=== PATIENT | female | born 1935 | race Caucasian/White ===

== ENCOUNTER 2016-10-04 08:26 | Day surgery (SDC) | payer MEDICARE, OTHER ==
--- NOTE | ~2016-10-04 | EGD ---
EGD REPORT [facility] [address] [place] [place] [address] NAME: YOSELIN JOSUE : 35 STATUS : REG [facility]#: [id number] AGE: 81 ADM/REG DATE : 10/04/16 MR#: [id number] REPORT SERV DATE: 10/04/16 DICTATED BY: TONYA PORTER DATE: 10/04/16 REPORT STATUS : Draft TRANSCRIBED BY: [facility] DATE: 10/04/16 Endoscopy Center Patient Name: Yoselin Josue Date of : 1935 Attending MD: OLIVIER PORTER MD Procedure Date No Time: 10/04/2016 Procedure: Colonoscopy Indications: FH of Colon Cancer - 1st degree relative, Last colonoscopy: September 2010 Referring MD: GEMMA NOLAN MD Medicines: See the Anesthesia note for documentation of the administered medications Complications: No immediate complications. Estimated blood loss: None. Procedure: Pre-Anesthesia Assessment: - ASA Grade Assessment: III - A patient with severe systemic disease. - Prior to the procedure, a History and Physical was performed, and patient medications and allergies were reviewed. The patient's tolerance of previous anesthesia was also reviewed. The risks and benefits of the procedure and the sedation options and risks were discussed with the patient. All questions were answered, and informed consent was obtained. Prior Anticoagulants: The patient has taken no previous anticoagulant or antiplatelet agents. After reviewing the risks and benefits, the patient was deemed in satisfactory condition to undergo the procedure. After I obtained informed consent, the scope was passed under direct vision. Throughout the procedure, the patient's blood pressure, pulse, and oxygen saturations were monitored continuously. The PCF [id number] was introduced through the anus and advanced to the terminal ileum. The ileocecal valve, appendiceal orifice, terminal ileum and rectum were photographed. The entire colon was examined. The colonoscopy was performed without difficulty. The patient tolerated the procedure well. The quality of the bowel preparation was adequate. Findings: The perianal and digital rectal examinations were normal. The terminal ileum appeared normal. A few medium-mouthed diverticula were found in the sigmoid colon and in the descending colon. Non-bleeding internal hemorrhoids were found during retroflexion and were Grade I (internal hemorrhoids that do not prolapse). EGD REPORT [place] [id number] [facility] [place]. [address] NAME: YOSELIN JOSUE : [birth year] STATUS : REG [facility]#: [id number] AGE: 81 ADM/REG DATE : 10/04/16 MR#: [id number] REPORT SERV DATE: 10/04/16 DICTATED BY: TONYA PORTER DATE: 10/04/16 REPORT STATUS : Draft TRANSCRIBED BY: [email or web address] DATE: 10/04/16 No other significant abnormalities were identified in a careful examination of the remainder of the colon. Impression: - The examined portion of the ileum was normal. - Diverticulosis in the sigmoid colon and in the descending colon. - Non-bleeding internal hemorrhoids. Recommendation: - Patient has a contact number available for emergencies. The signs and symptoms of potential delayed complications were discussed with the patient. Return to normal activities tomorrow. Written discharge instructions were provided to the patient. - High fiber diet indefinitely. - Discharge patient to home. - Continue present medications. - Repeat colonoscopy is not recommended for surveillance. Procedure Code(s): --- Professional --- 93844, Colonoscopy, flexible, proximal to splenic flexure; diagnostic, with or without collection of specimen(s) by brushing or washing, with or without colon decompression (separate procedure) Diagnosis Code(s): --- Professional --- K64.0, First degree hemorrhoids K57.30, Diverticulosis of large intestine without perforation or abscess without bleeding Z80.0, Family history of malignant neoplasm of digestive organs CPT copyright 2013 [employer]. All rights reserved. The codes documented in this report are preliminary and upon unhairing inspector review may be revised to meet current compliance requirements. OLIVIER PORTER MD 10/04/2016 10:27 AM This report has been signed electronically. Number of Addenda: 0 Note Initiated On: 10/04/2016 10:04 AM Scope Withdrawal Time 0 hours 7 minutes 28 seconds [address] [place] [address]
[~2016-10-04 08:26] MED LIST: EVISTA60 PO; FISH-EPA1000 MG PO; GLUCCHONDR PO; LOP25 PO; MAXZIDE PO; MONO20 PO; MOTRIN IB200 MG PO; MULTIPLE VIT PO; PROAIR HFA INH; ZYRTEC ALLGY10 MG PO; [UNRECOGNIZED DRUG - OTHER] PO
== END 2016-10-04 23:59 | disposition home health service (06) ==
LOC: DMU 08:26
PROVIDERS: Internal Medicine Gastroenterology
PROC: 0DJD8ZZ Inspection of Lower Intestinal Tract, Via Natural or Artificial Opening Endoscopic (ICD-10-PCS; principal; 2016-10-04 10:00)
DX: Z12.11 Encounter for screening for malignant neoplasm of colon (principal); K57.30 Diverticulosis of large intestine without perforation or abscess without bleeding; I10 Essential (primary) hypertension; J45.909 Unspecified asthma, uncomplicated; K64.0 First degree hemorrhoids; Z80.0 Family history of malignant neoplasm of digestive organs; Z88.0 Allergy status to penicillin; Z88.2 Allergy status to sulfonamides; Z88.8 Allergy status to other drugs, medicaments and biological substances